=== PATIENT | female | born 1950 | race African-American/Black ===

== ENCOUNTER 2023-09-30 18:43 | Emergency (ER) | payer MEDICARE ==
[~2023-09-30] VITALS: Ht 157.5 cm; Wt 72.0 kg
[2023-09-30 18:51] VITALS: O2SAT 97
[2023-09-30] MEDS ORDERED: ACETAMINOPHEN 325MG TABLET PO ONE (19:30)
[2023-09-30] MEDS ORDERED: ONDANSETRON 4MG ODT PO ONE (19:30)
[2023-09-30] MEDS ORDERED: ACETAMINOPHEN 325MG TABLET PO NR (21:30)
[2023-09-30] MEDS ORDERED: ONDANSETRON 4MG ODT PO NR (21:30)
[2023-09-30 21:58] VITALS: BP 185/78; PULSE 81; RESP 20
[2023-09-30 22:06] VITALS: TEMP 97.9
[2023-09-30] MEDS ORDERED: ONDA4TAB50 MT (22:32)
== END 2023-09-30 22:41 | disposition home or self-care (01) ==
LOC: ER 18:43
DX: B34.9 Viral infection, unspecified (principal); R11.2 Nausea with vomiting, unspecified; Z90.710 Acquired absence of both cervix and uterus
CPT/HCPCS: 99283; 87804 ×2; Q0162